=== PATIENT | male | born 2000 | race Hispanic/Latino ===

== ENCOUNTER 2021-07-11 15:26 | Emergency (ER) | payer SELFPAY | END 2021-07-11 16:12 | disposition home or self-care (01) | LOC: CSHERS 15:26 | DX: G51.0 Bell's palsy (principal); F17.210 Nicotine dependence, cigarettes, uncomplicated | CPT/HCPCS: 99283 ==

== ENCOUNTER 2021-11-16 13:42 | Emergency (ER) | payer OTHER | END 2021-11-16 15:00 | disposition home or self-care (01) | LOC: CSHERS 13:42 | DX: M25.461 Effusion, right knee (principal); F17.210 Nicotine dependence, cigarettes, uncomplicated; W19.XXXA Unspecified fall, initial encounter ==